=== PATIENT | male | born 1950 | race Hispanic/Latino ===

== ENCOUNTER → 2018-03-27 | Outpatient (CLI) | payer MEDICARE ==
[~2018-03-27] MED LIST: DIATRIZOATE MEGL/DIATRIZOA SOD 30 ML BTL PO ONE; SODIUM CHLORIDE 0.9% 250ML 500 ML ONE
[2018-03-27 09:12] LABS: CREATININE, SERUM 1.33 mg/dL (0.72-1.25)
--- NOTE | 2018-03-27 13:06 | Diagnostic Imaging Report ---
PROCEDURE: CT ABDOMEN AND PELVIS WITH CONTRAST TECHNIQUE: The abdomen and pelvis were scanned utilizing a multidetector helical scanner from the diaphragm to the lesser trochanter after the IV administration of 100 cc of Isovue 370 and the oral administration of 900 cc of Gastrografin and water. Coronal and sagittal multiplanar reformations were obtained. COMPARISON: None. INDICATIONS: DIVERTICULITIS FINDINGS: LOWER THORAX: Small patchy ground glass opacity in the right lower lobe on series 2, image 8, likely infectious or inflammatory. HEPATOBILIARY: Subcentimeter hepatic hypodensities are too small to characterize, but likely represent cysts. No biliary ductal dilatation. SPLEEN: No splenomegaly. PANCREAS: No focal masses or ductal dilatation. ADRENALS: No adrenal nodules. KIDNEYS/URETERS: No hydronephrosis, stones, or solid mass lesions. Subcentimeter left renal hypodensity is too small to characterize but likely represents a cyst. PELVIC ORGANS/BLADDER: Unremarkable. PERITONEUM / RETROPERITONEUM: No free air or fluid. LYMPH NODES: No lymphadenopathy. VESSELS: Unremarkable. GI TRACT: Sigmoid diverticulosis with mild wall thickening and very mild pericolonic stranding (series 2, image 68). No evidence of bowel distension. Normal appendix. BONES AND SOFT TISSUES: Unremarkable. IMPRESSION: Mild sigmoid diverticulitis. No evidence of abscess or free air. Dictated by: BO SCHULTZ M.D. on 03/27/2018 at 13:13 Electronically approved by: BO SCHULTZ M.D. on 03/27/2018 at 13:13
== END ==
LOC: CT 07:59
PROVIDERS: ATTEND Internal Medicine
DX: K57.92 Diverticulitis of intestine, part unspecified, without perforation or abscess without bleeding (principal)
CPT/HCPCS: 36415; 74177; 82565; 84520; 96360; J7050

== ENCOUNTER 2018-07-11 16:27 | Observation (INO) | payer MEDICARE ==
[~2018-07-11] VITALS: Ht 170.2 cm; Wt 69.4 kg
--- OUTSIDE RECORDS SUMMARY | 2018-07-11 16:30 | XMS REPORT ---
Author [facility] Address Unknown Phone Unavailable Care Team Providers Care Dispatch Machine Runner Name Role Phone Mary GONZALES Unavailable Unavailable Problems This patient has no known problems. Allergies, Adverse Reactions, Alerts This patient has no known allergies or adverse reactions. Medications This patient has no known medications. Results Test Description Test Time Test Comments Text Results Atomic Results Result Comments CT ABDOMEN/PELVIS W 2018-03-27 13:13:00 [place] [address] Patient Name: BRITTANI WANG MR #: [id number] : 1950 Age/Sex: 68/M Req #: [id number] [facility] Physician: Ordered by: RENEA GONZALES MD Report #: [id number] Location: CT Room/Bed: Procedure: [id number] CT/CT ABDOMEN/PELVIS W Exam Date: 03/27/18 Exam Time: 1000 REPORT STATUS: Signed PROCEDURE: CT ABDOMEN AND PELVIS WITH CONTRAST TECHNIQUE: The abdomen and pelvis were scanned utilizing a multidetector helical scanner from the diaphragm to the lesser trochanter after the IV administration of 100 cc of Isovue 370 and the oral administration of 900 cc of Gastrografin and water. Coronal and sagittal multiplanar reformations were obtained. COMPARISON: None. INDICATIONS: DIVERTICULITIS FINDINGS: LOWER THORAX: Small patchy ground glass opacity in the right lower lobe on series 2, image 8, likely infectious or inflammatory. HEPATOBILIARY: Subcentimeter hepatic hypodensities are too small to characterize, but likely represent cysts. No biliary ductal dilatation. SPLEEN: No splenomegaly. PANCREAS: No focal masses or ductal dilatation. ADRENALS: No adrenal no dules. KIDNEYS/URETERS: No hydronephrosis, stones, or solid mass lesions. Subcentimeter left renal hypodensity is too small to characterize but likely represents a cyst. PELVIC ORGANS/BLADDER: Unremarkable. PERITONEUM / RETROPERITONEUM: No free air or fluid. LYMPH NODES: No lymphadenopathy. VESSELS: Unremarkable. GI TRACT: Sigmoid diverticulosis with mild wall thickening and very mild pericolonic stranding (series 2, image 68). No evidence of bowel distension. Normal appendix. BONES AND SOFT TISSUES: Unremarkable. IMPRESSION: Mild sigmoid diverticulitis. No evidence of abscess or free air. Dictated by: BO SCHULTZ M.D. on 03/27/2018 at 13:13 Electronically approved by: BO SCHULTZ M.D. on 03/27/2018 at 13:13 Dictated By: BO SCHULTZ MD [id number] Transcribed By: GARCÍA on 03/27/18 1313 COPY TO: RENEA GONZALES MD, IV, HYDRAT 31MIN-1HR 2018-03-27 13:13:00 [place] [address] Patient Name: BRITTANI WANG MR #: [id number] : 1950 Age/Sex: 68/M Req #: [id number] Adm Physician: Ordered by: BO SCHULTZ MD Report #: [id number] Location: [place] Room/Bed: Procedure: [id number] CT/IV REINA CANAS 31MIN-1HR Exam Date: 03/27/18 Exam Time: 1000 REPORT STATUS: Signed PROCEDURE: CT ABDOMEN AND PELVIS WITH CONTRAST TECHNIQUE: The abdomen and pelvis were scanned utilizing a multidetector helical scanner from the diaphragm to the lesser trochanter after the IV administration of 100 cc of Isovue 370 and the oral administration of 900 cc of Gastrografin and water. Coronal and sagittal multiplanar reformations were obtained. COMPARISON: None. INDICATIONS: DIVERTICULITIS FINDINGS: LOWER THORAX: Small patchy ground glass opacity in the right lower lobe on series 2, image 8, likely infectious or inflammatory. HEPATOBILIARY: Subcentimeter hepatic hypodensities are too small to characterize, but likely represent cysts. No biliary ductal dilatation. SPLEEN: No splenomegaly. PANCREAS: No focal masses or ductal dilatation. ADRENALS: No adrenal nodules. KIDNEYS/URETERS: No hydronephrosis, stones, or solid mass lesions. Subcentimeter left renal hypodensity is too small to characterize but likely represents a cyst. PELVIC ORGANS/BLADDER: Unremarkable. PERITONEUM / RETROPERITONEUM: No free air or fluid. LYMPH NODES: No lymphadenopathy. VESSELS: Unremarkable. GI TRACT: Sigmoid diverticulosis with mild wall thickening and very mild pericolonic stranding (series 2, image 68). No evidence of bowel distension. Normal appendix. BONES AND SOFT TISSUES: Unremarkable. IMPRESSION: Mild sigmoid diverticulitis. No evidence of abscess or free air. Dictated by: BO SCHULTZ M.D. on 03/27/2018 at 13:13 Electronically approved by: BO SCHULTZ M.D. on 03/27/2018 at 13:13 Dictated By: BO SCHULTZ MD 1313 Transcribed By: GARCÍA on 03/27/18 1313 COPY TO: BO SCHULTZ MD
[2018-07-11 17:02] LABS: BASOPHILS # (AUTO) 0.1 (0.0-0.1); BASOPHILS % 0.5 % (0.0-1.0); EOSINOPHILS % 0.1 % (0.0-6.0); HEMATOCRIT 43.3 % (38.2-49.6); HEMOGLOBIN 14.5 g/dL (14.0-18.0); LYMPHOCYTES # (AUTO) 2.8 (1.0-3.2); LYMPHOCYTES % 22.8 % (18.0-39.1); MEAN CORPUSCULAR HEMOGLOBIN 27.5 pg (28-32); MEAN CORPUSCULAR HGB CONC 33.5 g/dL (31-35); MEAN CORPUSCULAR VOLUME 82.2 fL (81-99); MONOCYTES # (AUTO) 0.7 (0.2-0.8); NEUTROPHILS # (AUTO) 8.5 (2.1-6.9); PLATELET COUNT 245 x10e3/uL (140-360); RED BLOOD COUNT 5.27 x10e6/uL (4.3-5.7); RED CELL DISTRIBUTION WIDTH 12.8 % (11.7-14.4)
[2018-07-11 17:14] LABS: INR 0.96; PARTIAL THROMBOPLASTIN TIME 32.6 seconds (23.8-35.5); PROTHROMBIN TIME 13.7 seconds (11.9-14.5)
[2018-07-11 17:23] LABS: ALANINE AMINOTRANSFERASE 33 IU/L (0-55); ALBUMIN 4.4 g/dL (3.5-5.0); ALBUMIN/GLOBULIN RATIO 1.3 (0.8-2.0); ALKALINE PHOSPHATASE 113 IU/L (40-150); ANION GAP 17.5 mmol/L (8-16); BLOOD UREA NITROGEN 17 mg/dL (7-26); BUN/CREATININE RATIO 11 (6-25); CALCIUM 9.6 mg/dL (8.4-10.2); CARBON DIOXIDE 22 mmol/L (22-29); CHLORIDE 92 mmol/L (98-107); CREATINE KINASE 79 IU/L (30-200); EST GLOMERULAR FILTRATION RATE 43 ML/MIN (60-); GLUCOSE 146 mg/dL (74-118); MAGNESIUM 2.1 MG/DL (1.3-2.1); POTASSIUM 3.5 mmol/L (3.5-5.1); SODIUM 128 mmol/L (136-145)
--- NOTE | 2018-07-11 17:24 | NUR ---
[facility]PRESSURE. PT PLACED ON CARDIAC, B/P AND PULSE OX MONITOR. SL STARTED IN TRIAGE, EKG DONE IN TRIAGE. PT GETTNG CXR IN ROOM AT THIS TIME.
[2018-07-11 17:41] LABS: COLOR,URINE YELLOW (YELLOW)
[2018-07-11 17:42] LABS: BILIRUBIN,URINE NEGATIVE (NEGATIVE); CLARITY,URINE SL CLOUDY (CLEAR); KETONES,URINE NEGATIVE (NEGATIVE); LEUKOCYTE ESTERASE ,URINE NEGATIVE (NEGATIVE); NITRITE,URINE NEGATIVE (NEGATIVE); PROTEIN,URINE DIPSTICK NEGATIVE (NEGATIVE); URINE UROBILINOGEN 0.2 mg/dL (0.2 - 1)
--- NOTE | 2018-07-11 17:45 | Diagnostic Imaging Report ---
EXAMINATION: CHEST SINGLE (PORTABLE) INDICATION: High blood pressure. COMPARISON: None FINDINGS: TUBES and LINES: None. LUNGS: Lungs are well inflated. Lungs are clear. There is no evidence of pneumonia or pulmonary edema. PLEURA: No pleural effusion or pneumothorax. HEART AND MEDIASTINUM: The cardiomediastinal silhouette is unremarkable. BONES AND SOFT TISSUES: No acute osseous lesion. Soft tissues are unremarkable. UPPER ABDOMEN: No free air under the diaphragm. IMPRESSION: No acute thoracic abnormality. Signed by: Dr. Sierra Vieira M.D. on 07/11/2018 5:41 PM
--- NOTE | 2018-07-11 19:10 | NUR ---
BEDSIDE REPORT GIVEN TO JENNIFER MCCARTHY ACCESS SERVICES LIBRARIAN NURSE.
[2018-07-11] MEDS ORDERED: MORPHINE SULFATE 2 MG/ML SYR IV PRN (19:45)
[2018-07-11] MEDS ORDERED: SODIUM CHLORIDE FLUSH 10 ML SYR INJ PRN (19:45)
[2018-07-11] MEDS ORDERED: ONDANSETRON HCL INJ 2 MG/ML VIAL IV PRN (19:45)
[2018-07-11] MEDS ORDERED: NITROGLYCERIN 0.4 MG SUBL SL PRN (19:45)
[2018-07-11] MEDS ORDERED: MORPHINE SULFATE INJ 4 MG/ML INJ IV PRN (20:00)
[2018-07-11] MEDS: FAMOTIDINE 20 MG/2 ML VIAL IV SCH (22:12)
[2018-07-12] MEDS ORDERED: LEVOTHYROXINE50 MCG PO (00:12)
[2018-07-12] MEDS ORDERED: SUCRALFATE1 GM (00:12)
[2018-07-12] MEDS ORDERED: TRIAMTERENE-HCTZ1 EA (00:12)
[2018-07-12] MEDS ORDERED: FAMOTIDINE40 MG (00:12)
[2018-07-12] MEDS ORDERED: PRAVASTATIN SOD40 MG PO (00:12)
[2018-07-12 02:38] LABS: CREATINE KINASE 92 IU/L (30-200)
[2018-07-12 05:01] LABS: CHOL/HDL RATIO 5.2 (3.9-4.7)
--- NOTE | 2018-07-12 07:15 | NUR ---
WALKING ROUNDS WITH CAN RODRIGUEZ, REPORT GIVEN IN FULL.
--- NOTE | 2018-07-12 07:15 | NUR ---
ASSUMED CARE AT THIS TIME. PATIENT AWAKE AND ALERT. RESP EVEN AND UNLABORED. SKIN WARM AND DRY. NO SIGNS OF ACUTE DISTRESS NOTED AT THIS TIME. DENIES ANY C/O AT THIS TIME.
[2018-07-12] MEDS: FAMOTIDINE 20 MG/2 ML VIAL IV SCH ×2 (07:42→21:16)
[2018-07-12] MEDS: ASPIRIN 81 MG ENTERIC COATED PO SCH (07:43)
--- NOTE | 2018-07-12 09:50 | NUR ---
PATIENT AMBULATORY TO SINK IN ROOM TO BRUSH TEETH AND WASH FACE WITH FAMILY ASSISTANCE, NO SIGNS OF ACUTE DISTRESS NOTED AT THIS TIME.
--- NOTE | 2018-07-12 10:00 | NUR ---
PATIENT AMBULATORY BACK TO BED FROM SINK, REPORTS DIZZINESS AFTER AMBULATION, HX MENIERE'S DISEASE,DENIES C/O CHEST PAIN OR SOB. NO SIGNS OF ACUTE DISTRESS NOTED AT THIS TIME. RECONNECTED TO BEDSIDE MONITOR, DENIES ANY OTHER C/O AT THIS TIME.
[2018-07-12 10:42] LABS: CREATINE KINASE 99 IU/L (30-200)
--- NOTE | 2018-07-12 10:55 | NUR ---
DR Halie GONZALES AT BEDSIDE FOR PATIENT EVAL AND DISCUSSING THE CURRENT PLAN OF CARE, VERBALIZED UNDERSTANDING. NO SIGNS OF ACUTE DISTRESS NOTED AT THIS TIME.
[2018-07-12] MEDS ORDERED: TRIAMTERENE/HCTZ 37.5-25 MG TAB PO SCH (11:00)
--- NOTE | 2018-07-12 12:46 | History and Physical ---
He is a 68-year-old male patient, presented to the emergency room with complaint of retrosternal pressure type of chest pain. HISTORY OF PRESENT ILLNESS: Mr. Guillen is a 68-year-old male patient with history of hypertension, GERD, and diverticulitis, presented to the emergency room with retrosternal chest pain and pressure type of pain and heaviness for 1 hour today. Patient was scheduled to have a prostatic biopsy for prostatic nodule and high PSA. But then patient had a blood pressure that was very elevated. The biopsy was canceled. Patient came to the emergency room with the complaint of chest pain. PAST MEDICAL HISTORY: Hypertension, BPH. ALLERGIES: NO KNOWN DRUG ALLERGIES. SOCIAL HISTORY: Denies smoking. Denies using alcohol. FAMILY HISTORY: Hypertension, hyperlipidemia. REVIEW OF SYSTEMS: Chest pain. No headache. No blurry vision, and heartburn and abdominal pain. PAST SURGICAL HISTORY: Hemorrhoidectomy. MEDICATIONS: See from the list. Patient is on Pepcid and and levothyroxine and Carafate. PHYSICAL EXAMINATION GENERAL: He is middle-aged male patient, lying in bed, not in acute distress. VITAL SIGNS: Temperature 98, pulse rate 112, tachycardic, respiration rate 20, blood pressure 164/106 on arrival. No blood pressure is 120/80. HEENT: Normocephalic, atraumatic. NECK: No JVD. No lymphadenopathy. LUNGS: Bilateral fair air entry. No rales, no rhonchi. HEART: S1, S2 regular. No murmur. No gallop. ABDOMEN: Soft. Bowel sounds present. NEUROLOGICAL: No focal neurological deficit. ADMITTING IMPRESSION AND DIAGNOSES 1. Atypical chest pain. 2. Accelerated hypertension. 3. Hyponatremia. 4. Prostatic nodule. 5. Mild renal insufficiency. PLAN: The patient will be admitted with the above diagnoses. Will do serial EKGs, cardiac enzymes and rule out [place]. Will start patient on a beta shannon, metoprolol and obtain cardiology consultation. Job#: [id number] SANDRA
--- NOTE | 2018-07-12 13:22 | NUR ---
PATIENT LAYING IN BED WITH EYES CLOSED. RESP EVEN AND UNLABORED. SKIN WARM AND DRY. NO SIGNS OF ACUTE DISTRESS NOTED AT THIS TIME.
--- NOTE | 2018-07-12 14:30 | NUR ---
VERBAL REPORT GIVEN TO JENNIFER LEON.
--- NOTE | 2018-07-12 14:40 | NUR ---
RECEIVED ENDORSEMENT AND BEDSIDE REPORT FROM CAN RODRIGUEZ. PT RESTING IN HOSPITAL BED WITH FAMILY AT BEDSIDE; NSR ON MONITOR; VSS; AWARE STILL WAITING FOR A BED IN THE HOSPITAL.
[2018-07-12] MEDS ORDERED: METOPROLOL SUCCINATE 50 MG TAB XL PO ONE (17:00)
[2018-07-12] MEDS: SUCRALFATE 1 GM TAB PO SCH (19:15)
[2018-07-12] MEDS: ATORVASTATIN 20 MG TAB PO SCH ×2 (21:15→21:24)
[2018-07-12] MEDS ORDERED: ACETAMINOPHEN 325 MG TAB PO PRN (22:00)
[2018-07-13] VITALS (7 sets, daily range): BP systolic 127–136; BP diastolic 70–96
--- NOTE | 2018-07-13 00:35 | NUR ---
REPORT TO JENNIFER NORTH. PT TRANSPORTED TO ROOM VIA BED.
[2018-07-13 04:46] LABS: BASOPHILS # (AUTO) 0.1 (0.0-0.1); BASOPHILS % 0.7 % (0.0-1.0); EOSINOPHILS # (AUTO) 0.1 (0.0-0.4); EOSINOPHILS % 1.2 % (0.0-6.0); HEMATOCRIT 43.1 % (38.2-49.6); HEMOGLOBIN 14.7 g/dL (14.0-18.0); LYMPHOCYTES # (AUTO) 3.5 (1.0-3.2); LYMPHOCYTES % 31.3 % (18.0-39.1); MEAN CORPUSCULAR HEMOGLOBIN 28.1 pg (28-32); MEAN CORPUSCULAR HGB CONC 34.1 g/dL (31-35); MEAN CORPUSCULAR VOLUME 82.3 fL (81-99); MONOCYTES % 8.5 % (4.4-11.3); NEUTROPHILS # (AUTO) 6.5 (2.1-6.9); NEUTROPHILS % 57.5 % (38.7-80.0); PLATELET COUNT 255 x10e3/uL (140-360); RED BLOOD COUNT 5.24 x10e6/uL (4.3-5.7); RED CELL DISTRIBUTION WIDTH 12.6 % (11.7-14.4)
[2018-07-13 05:05] LABS: ALBUMIN 4.2 g/dL (3.5-5.0); ALBUMIN/GLOBULIN RATIO 1.3 (0.8-2.0); CALCIUM 9.5 mg/dL (8.4-10.2); CREATININE, SERUM 1.42 mg/dL (0.72-1.25)
[2018-07-13] MEDS ORDERED: LEVOTHYROXINE SODIUM 50 MCG TAB PO SCH (06:00)
--- NOTE | 2018-07-13 07:00 | NUR ---
DR NASH IN UNIT NOTIFIED ABOUT THE CONSULT.
--- NOTE | 2018-07-13 07:10 | NUR ---
RCD PT AT BED PT IS ALERT AND ORIENTED PT RESTING ON BED NO SIGNS OF ANY DISTRESS NOTED IV PATENT BED LOW AND LOCKED CALL LIGHT IN REACH
--- NOTE | 2018-07-13 07:18 | NUR ---
REPORT GIVEN TO ONCOMING NURSE,PT RESTING IN BED WITH NO S/S OF DISTRESS.
[2018-07-13] MEDS: SUCRALFATE 1 GM TAB PO SCH (07:30)
[2018-07-13] MEDS: FAMOTIDINE 20 MG/2 ML VIAL IV SCH (07:45)
--- NOTE | 2018-07-13 08:34 | Consultation ---
DATE OF CONSULTATION: REQUESTING PHYSICIAN: Dr. Gallego. REASON FOR CONSULT: Chest pain. HISTORY OF PRESENTING ILLNESS: Mr. Guillen is a 68-year-old gentleman with past medical history as listed below. He reportedly had a prostate nodule and went to [facility] for a biopsy. He was noted to have elevated blood pressure and was sent back home without having the biopsy. On , patient developed chest pain, was a pressure-like sensation and some heaviness, lasted about 10 to 15 minutes and recurred a few times, and so he decided to come to the hospital. Reportedly, his blood pressure was also elevated at home and had a mild headache. Patient apparently has had a stress test, echo, and carotid Doppler recently and was told everything was okay. He states he was a little anxious and thinks that must have caused elevated blood pressure. He states he feels fine now, no further episodes of chest pain. He has no known history of coronary artery disease. REVIEW OF SYMPTOMS CONSTITUTIONAL: Had some fatigue and weakness. HEENT: Had some headache. No blurry vision, seizures, or syncope. CARDIOVASCULAR: Had chest pain. No dyspnea, orthopnea, or PND. RESPIRATORY: No cough, fever, or expectoration. GI: No abdominal pain, vomiting, or diarrhea. : No dysuria, frequency, or incontinence. ALLERGIES: NO KNOWN DRUG ALLERGIES. MEDICATIONS: See list. PAST MEDICAL HISTORY 1. History of hypertension. 2. History of BPH. SOCIAL HISTORY: Patient apparently used to smoke 3 to 4 cigarettes a day, smoked for several years, and quit about a year back. Drinks alcohol socially. FAMILY HISTORY: Noncontributory. PHYSICAL EXAMINATION GENERAL: Well-developed, well-nourished gentleman, alert and oriented, not in any obvious distress. VITAL SIGNS: Heart rate is 76, blood pressure 136 86, respiratory rate is 18, temperature is 96.7. HEENT: Atraumatic. NECK: No JVD, bruits, thyromegaly, or lymphadenopathy. CARDIOVASCULAR: First and second heart sounds heard. No murmurs, rubs, or gallops appreciated. CHEST: Decreased air entry at the bases. No adventitious sounds appreciated. ABDOMEN: Soft, nontender. EXTREMITIES: No edema. LABORATORY DATA: Sodium is 131, potassium 4.0, chloride is 94, bicarb is 24, BUN is 23, creatinine 1.4, glucose 105. Hemoglobin is 14.7, hematocrit 43.1, platelets 255, white count is 11.2. INR is 0.9. LFTs are normal. Troponins are normal. BNP is normal. Triglyceride is 118, cholesterol 197, LDL is 135, and HDL is 38. IMPRESSION Chest pain, atypical. Hypertension. Hyperlipidemia. Benign prostatic hypertrophy. PLAN 1. No further episodes of chest pain. 2. [place] has been ruled out. 3. Patient reportedly had a stress test recently. 4. Continue with statin and aspirin. 5. If patient has further recurrent episode of chest pain, we will pursue further cardiac workup which can be done as an outpatient. 6. I discussed my impression and plan and management with the patient, he understands. As always, I appreciate and thank you very much for referral. Job#: [id number] MARTHA
[2018-07-13] MEDS: ASPIRIN 81 MG ENTERIC COATED PO SCH (09:00)
[2018-07-13] MEDS ORDERED: METOPROLOL SUCCINATE 50 MG TAB XL PO SCH (09:00)
[2018-07-13] MEDS ORDERED: AZITHROMYCIN250 MG PO (15:01)
[2018-07-13] MEDS ORDERED: METOPROLOL TART50 MG PO (15:02)
[2018-07-13] MEDS ORDERED: ASPIR 8181 MG PO (15:03)
--- NOTE | 2018-07-13 16:05 | NUR ---
PATIENT WENT HOME IN SAFE CONDITION WITH HIS
== END 2018-07-13 16:05 | disposition home or self-care (01) ==
LOC: ER 16:27 → ERHOLD 20:15 → INTOOBSV 20:15 → MED/SURG2 07-13 00:32
PROVIDERS: ADMIT Internal Medicine; ATTEND Internal Medicine
DX: R07.89 Other chest pain (principal); E87.1 Hypo-osmolality and hyponatremia; I10 Essential (primary) hypertension; E78.5 Hyperlipidemia, unspecified; K57.92 Diverticulitis of intestine, part unspecified, without perforation or abscess without bleeding; K21.9 Gastro-esophageal reflux disease without esophagitis; K64.9 Unspecified hemorrhoids; Z82.49 Family history of ischemic heart disease and other diseases of the circulatory system; D72.829 Elevated white blood cell count, unspecified; R73.9 Hyperglycemia, unspecified; N40.2 Nodular prostate without lower urinary tract symptoms; Z87.891 Personal history of nicotine dependence; R00.0 Tachycardia, unspecified; N17.9 Acute kidney failure, unspecified; J40 Bronchitis, not specified as acute or chronic
CPT/HCPCS: 36415 ×2; 71045; 80053 ×2; 80061; 81001; 82550 ×2; 82553 ×2; 83735; 83880; 84484 ×2; 85025 ×2; 85610; 85730; 93005; 99284; G0378 ×3